=== PATIENT | male | born 1955 | race Caucasian/White ===

== ENCOUNTER 2017-08-27 21:54 | Outpatient (CLI) | payer BC ==
--- NOTE | 2017-08-28 00:46 | Ultrasound Preliminary Report ---
Exam: US DUPLEX EXT VEINS BILATERAL IMPRESSION: No evidence for deep venous thrombosis bilaterally. [facility] SITE ID: [id number]
--- NOTE | 2017-08-28 00:49 | Ultrasound Report ---
EXAM: BILATERAL LOWER EXTREMITY VENOUS ULTRASOUND EXAM DATE: 08/28/2017 12:18 AM. CLINICAL HISTORY: PERIPHERAL VASCULAR DISEASE, CALF PAIN. COMPARISON: None. TECHNIQUE: Real-time sonographic vascular imaging was performed by the aitchbone breaker through the lower extremities utilizing both color-flow and Doppler spectral analysis. Multiple pharmacy services representative static i mages were saved for review. FINDINGS: Right: Common Femoral Vein (CFV): Normal. CFV-GSV Junction: Normal. Profunda Femoral Vein (PFV): Normal. Femoral Vein (FV) Prox: Normal. Femoral Vein (FV) Mid: Normal. Femoral Vein (FV) Dist: Normal. Popliteal Vein: Normal. Posterior Tibial Veins: Normal. Peroneal Veins: Normal. Left: Common Femoral Vein (CFV): Normal. CFV-GSV Junction: Normal. Profunda Femoral Vein (PFV): Normal. Femoral Vein (FV) Prox: Normal. Femoral Vein (FV) Mid: Normal. Femoral Vein (FV) Dist: Normal. Popliteal Vein: Normal. Posterior Tibial Veins: Normal. Peroneal Veins: Normal. Other: None. IMPRESSION: No evidence for deep venous thrombosis bilaterally. [facility] Referring Provider Line: [phone] SITE ID: [id number]
--- NOTE | 2017-08-28 01:59 | Ultrasound Preliminary Report ---
Exam: US DUPLEX LWR EXT ARTERIAL BILAT IMPRESSION: 1. There is occlusion of the right superficial femoral artery including stented segment. Reconstitute d flow seen at the level of the popliteal through dorsal pedal arteries. 2. Diffuse left lower extremity arterial sclerotic disease without evidence of occlusion. [facility] SITE ID: [id number]
--- NOTE | 2017-08-28 17:07 | Ultrasound Report ---
EXAM: BILATERAL LOWER EXTREMITY ARTERIAL DOPPLER ULTRASOUND EXAM DATE: 08/28/2017 12:18 AM. CLINICAL HISTORY: Peripheral vascular disease, calf pain. COMPARISON: None. TECHNIQUE: Real-time sonographic vascular imaging was performed by the business center manager, utilizing color-f low, Doppler flow, and spectral analysis. Multiple entry level account representative static images were saved for review . FINDINGS: A right superficial femoral artery stent is noted. No flow is seen throughout the right superficial f emoral artery including stented segments. Flow is seen within the right profunda as well as popliteal arteries. Monophasic waveforms seen throughout the calf arteries. The left lower extremity demonstra sonja diffuse atherosclerotic changes with predominantly monophasic waveforms however no evidence of oc clusion or high-grade stenosis. Right Leg: CUSTOMER SERVICER: PSV 105 cm/sec. Bi/triphasic waveform. PFA: PSV 278 cm/sec. Biphasic waveform. POP: PSV 109 cm/sec. Monophasic waveform. CHRISTELLE: PSV 16.8 cm/sec. Monophasic waveform. TANK OPERATOR: PSV 35 cm/sec. Monophasic waveform. PER: PSV 18 cm/sec. Monophasic waveform. DPA: PSV 14.6 cm/sec. Monophasic waveform. Left Leg: CUSTOMER SERVICER: PSV 115 cm/sec. Triphasic waveform. PSFA: PSV 68 cm/sec. Monophasic waveform. MSFA: PSV 43 cm/sec. Monophasic waveform. DSFA: PSV 34 cm/sec. Monophasic waveform. PFA: PSV 230 cm/sec. Biphasic waveform. POP: PSV 11 cm/sec. Monophasic waveform. CHRISTELLE: PSV 19 cm/sec. Monophasic waveform. TANK OPERATOR: PSV 9.1 cm/sec. Monophasic waveform. PER: PSV 10 cm/sec. Monophasic waveform. DPA: PSV 8 cm/sec. Monophasic waveform. IMPRESSION: 1. There is occlusion of the right superficial femoral artery including stented segment. Reconstitute d flow seen at the level of the popliteal through dorsal pedal arteries. 2. Diffuse left lower extremity arterial sclerotic disease without evidence of occlusion. [facility] Referring Provider Line: [phone] SITE ID: [id number]
== END 2017-08-27 21:55 | disposition home or self-care (01) ==
LOC: DI 21:54
PROVIDERS: ATTEND Physician Assistant Medical
DX: I77.1 Stricture of artery (principal)
CPT/HCPCS: 93925; 93970

== ENCOUNTER 2021-03-03 09:53 | Outpatient (CLI) | payer MEDICARE, BC ==
--- NOTE | 2021-03-03 12:51 | XRAY Report ---
PROCEDURE: Knee 3 View RT INDICATIONS: OSTEOARTHRITIS KNEE, RIGHT TECHNIQUE: 3 views of the right knee(s) were acquired. COMPARISON: None. FINDINGS: Bones: No fractures or dislocations. Mild to moderate tricomponent osteoarthritis is seen more promi nent in medial femoral tibial compartment. Enthesophyte formation in anterior tibial tuberosity at di stal patellar tendon insertion is seen . No suspicious bony lesions. Soft tissues: No joint effusion. No suspicious soft tissue calcifications. IMPRESSION: Mild to moderate tricompartment osteoarthritis most prominent in medial femoral tibial c ompartment. No fracture or dislocation. No significant joint effusion. Reviewed by: Basim Cowan MD on 03/03/2021 12:49 PM PDT Approved by: Basim Cowan MD on 03/03/2021 12:49 PM PDT Station ID: [id number]
== END 2021-03-03 23:59 | disposition home or self-care (01) ==
LOC: DI.N 09:53
PROVIDERS: ATTEND Family Medicine
DX: M17.11 Unilateral primary osteoarthritis, right knee (principal)

== ENCOUNTER 2021-04-27 08:00 | Outpatient (CLI) | payer MEDICARE, BC ==
[2021-04-27 12:20] LABS: CALCIUM 9.1 mg/dL (8.5-10.3); CREATININE 1.6 mg/dL (0.6-1.2); POTASSIUM 4.1 mmol/L (3.5-5.0)
[2021-04-27 12:56] LABS: ESTIMATED AVERAGE GLUCOSE 131 mg/dL (70-100); HEMOGLOBIN A1c% 6.2 % (4.27-6.07)
== END 2021-04-27 23:59 | disposition home or self-care (01) ==
LOC: LAB.WCP 08:00
PROVIDERS: ATTEND Internal Medicine
DX: R73.01 Impaired fasting glucose (principal); N40.1 Benign prostatic hyperplasia with lower urinary tract symptoms
CPT/HCPCS: 36415; 80048; 83036; 84153

== ENCOUNTER 2022-10-31 14:49 | Outpatient (CLI) | payer MEDICARE, BC ==
--- NOTE | 2022-10-31 16:59 | CT Report ---
PROCEDURE: CERVICAL SPINE WO INDICATIONS: CERVICALGIA TECHNIQUE: Noncontrast 3 mm thick sections acquired from the skull base to the T4 level. Sagittal and coronal r eformats were then constructed. For radiation dose reduction, the following was used: automated exp osure control, adjustment of mA and/or kV according to patient size. COMPARISON: None. FINDINGS: Image quality: Excellent. Bones: No fractures or dislocations. Visualized superior ribs are intact. Prominent multilevel rig ht facet hypertrophy from C2-C3 through C6-C7, and left facet hypertrophy involving C2-C3 and C3-C4. Multilevel uncovertebral joint hypertrophy. There is a degree of canal stenosis at C5-C6 and C6-C7. T here is multilevel bony foraminal narrowing. Soft tissues: Prevertebral soft tissues are normal in thickness. No paravertebral hematomas. No ap ical pneumothoraces. IMPRESSION: Cervical spondylosis with canal stenosis, multilevel facet arthropathy, and multilevel bony foraminal narrowing. Comment: Cervical spine MRI may be helpful. Reviewed by: Santos Sarkar MD on 10/31/2022 4:58 PM PST Approved by: Santos Sarkar MD on 10/31/2022 4:58 PM PST Station ID: [id number]
== END 2022-10-31 14:50 | disposition home or self-care (01) ==
LOC: DI 14:49
PROVIDERS: ATTEND Internal Medicine
DX: I08.0 Rheumatic disorders of both mitral and aortic valves (principal); M47.812 Spondylosis without myelopathy or radiculopathy, cervical region; M48.02 Spinal stenosis, cervical region
CPT/HCPCS: 93306

== ENCOUNTER 2022-11-18 07:41 | Outpatient (CLI) | payer MEDICARE, BC ==
--- NOTE | 2022-11-20 08:50 | MRI Report ---
PROCEDURE: CERVICAL SPINE WO INDICATIONS: OSSEOUS STENOSIS OF NEURAL CANAL TECHNIQUE: Noncontrast sagittal T1 spin echo and T2 fast spin echo, sagittal STIR, foraminal oblique sagittal T2 fast spin echo, and axial gradient echo or T2 fast spin echo through the cervical spine. COMPARISON: None. FINDINGS: Image quality: Excellent. Alignment and Curvature: Trace anterolisthesis of C4 on C5. Trace retrolisthesis of C5 on C6 and of C 6 on C7. Bone Marrow: Marrow demonstrates normal overall signal. Spinal Cord: Visualized spinal cord has normal size and signal. No cerebellar tonsillar herniation. Paraspinous Soft Tissues: No paravertebral masses. Prevertebral soft tissues are normal in thicknes s. C2-C3: Disc bulge. Central canal measures 10.7 mm. Bilateral facet hypertrophy. Bilateral uncoverteb ral joint hypertrophy. Moderate to severe right foraminal narrowing and moderate left foraminal narro wing. There is a degree of bilateral C3 nerve root impingement, right greater than left. C3-C4: Disc bulge. AP diameter of the canal is 9.8 mm. Bilateral uncovertebral joint hypertrophy an d bilateral facet hypertrophy. Moderate to severe right foraminal narrowing with the degree of right foraminal C4 nerve root impingement. Mild left foraminal narrowing. C4-C5: Disc bulge abutting the cord. AP diameter of the canal is 10.8 mm. Prominent right facet hype rtrophy. Mild left facet hypertrophy. Moderate right foraminal narrowing with flattening of the exiti ng right C5 nerve root. C5-C6: Diffuse posterior disc. Osteophyte with large bilateral uncovertebral joint osteophytes. The cord is abutted anteriorly. The central canal measures 9.4 mm. There is bilateral lateral recess sten osis, left greater than right, with bilateral C6 nerve root impingement in the lateral recesses, left greater than right. There is moderate right foraminal narrowing. There is moderate to severe left fo raminal narrowing. There is left foraminal C6 nerve root impingement. C6-C7: There is diffuse posterior disc plus osteophyte. Central canal measures 8.2 mm. There are lar ge bilateral uncovertebral joint osteophytes. There is moderate to severe right foraminal narrowing w ith the degree of right foraminal C7 nerve root impingement. There is mild left foraminal narrowing. C7-T1: No canal stenosis or foraminal stenosis. IMPRESSION: 1. Multilevel cervical spondylitic changes with multilevel facet arthropathy and multilevel uncoverte bral joint hypertrophy. 2. Multilevel canal stenosis, moderate at C6-C7, mild to moderate at C5-C6, and borderline at C3-C4. 3. Significant multilevel foraminal narrowing as described above. Findings include moderate to severe right foraminal narrowing at C2-C3 and C3-C4, moderate to severe left foraminal narrowing at C5-C6, and moderate to severe right foraminal narrowing at C6-C7. Reviewed by: Santos Sarkar MD on 11/20/2022 8:48 AM PDT Approved by: Santos Sarkar MD on 11/20/2022 8:48 AM PDT Station ID: [id number]
== END 2022-11-18 07:42 | disposition home or self-care (01) ==
LOC: DI 07:41
PROVIDERS: ATTEND Internal Medicine
DX: M47.812 Spondylosis without myelopathy or radiculopathy, cervical region (principal); M50.31 Other cervical disc degeneration, high cervical region; M48.02 Spinal stenosis, cervical region

== ENCOUNTER 2023-01-17 07:37 | Outpatient (CLI) | payer MEDICARE, BC ==
[2023-01-17 12:05] LABS: BASOPHILS % (AUTO) 0.4 %; EOSINOPHILS # (AUTO) 0.2 10^3/uL (0.0-0.7); EOSINOPHILS % (AUTO) 1.7 %; HCT - HEMATOCRIT 50.4 % (42.0-52.0); HGB - HEMOGLOBIN 15.8 g/dL (14.0-18.0); LYMPHOCYTES % (AUTO) 31.9 %; MEAN CORPUSCULAR HEMOGLOBIN 28.4 pg (27.0-31.0); MEAN CORPUSCULAR HGB CONC 31.3 g/dL (32.0-36.0); MEAN CORPUSCULAR VOLUME 90.6 fL (80.0-94.0); MEAN PLATELET VOLUME 11.9 fL (7.4-11.4); MONOCYTES # (AUTO) 0.5 10^3/uL (0.0-1.0); MONOCYTES % (AUTO) 5.8 %; NEUTROPHILS # (AUTO) 5.6 10^3/uL (1.5-6.6); NEUTROPHILS % (AUTO) 59.9 %; PLT - PLATELET COUNT 151 10^3/uL (130-450); RED BLOOD COUNT 5.56 10^6/uL (4.70-6.10); RED CELL DISTRIBUTION WIDTH 14.8 % (12.0-15.0); WHITE BLOOD COUNT 9.3 x10^3/uL (4.8-10.8)
[2023-01-17 12:12] LABS: ALBUMIN 4.2 g/dL (3.2-5.5); ALBUMIN/GLOBULIN RATIO 1.2 (1.0-2.2); ALKALINE PHOSPHATASE 86 IU/L (42-121); ALT ALANINE AMINOTRANSFERASE 21 IU/L (10-60); AST ASPARTATE AMINOTRANSFERASE 17 IU/L (10-42); BILIRUBIN,TOTAL 0.7 mg/dL (0.2-1.0); BUN - BLOOD UREA NITROGEN 37 mg/dL (6-20); CALCIUM 8.7 mg/dL (8.5-10.3); CARBON DIOXIDE - CO2 22 mmol/L (21-32); CHLORIDE 110 mmol/L (101-111); CHOL/HDL RATIO 4.7 (<5.0); CHOLESTEROL 168 mg/dL; CREATININE 1.9 mg/dL (0.6-1.2); GFR - MDRD 36 (>89); GLUCOSE 101 mg/dL (70-100); HDL CHOLESTEROL 36 mg/dL; LDL CHOLESTEROL,CALCULATED 93 mg/dL; LDL/HDL RATIO 2.6 (<3.6); POTASSIUM 4.9 mmol/L (3.5-5.0); SODIUM 137 mmol/L (135-145); TOTAL PROTEIN 7.6 g/dL (6.7-8.2); TRIGLYCERIDES 194 mg/dL; VLDL CHOLESTEROL 39 mg/dL
[2023-01-17 12:18] LABS: ESTIMATED AVERAGE GLUCOSE 123 mg/dL (70-100); HEMOGLOBIN A1c% 5.9 % (4.27-6.07)
== END 2023-01-17 07:38 | disposition home or self-care (01) ==
LOC: LAB.N 07:37
PROVIDERS: ATTEND Internal Medicine
DX: E78.5 Hyperlipidemia, unspecified (principal); R73.01 Impaired fasting glucose; I10 Essential (primary) hypertension
CPT/HCPCS: 36415; 80053; 80061; 83036; 83721; 85025

== ENCOUNTER 2023-08-14 08:00 | Outpatient (CLI) | payer MEDICARE, BC ==
[2023-08-14 12:03] LABS: BASOPHILS % (AUTO) 0.5 %; EOSINOPHILS # (AUTO) 0.2 10^3/uL (0.0-0.7); EOSINOPHILS % (AUTO) 1.8 %; HCT - HEMATOCRIT 46.5 % (42.0-52.0); HGB - HEMOGLOBIN 14.7 g/dL (14.0-18.0); LYMPHOCYTES # (AUTO) 2.3 10^3/uL (1.5-3.5); LYMPHOCYTES % (AUTO) 25.9 %; MEAN CORPUSCULAR HGB CONC 31.6 g/dL (32.0-36.0); MEAN CORPUSCULAR VOLUME 91.7 fL (80.0-94.0); MEAN PLATELET VOLUME 11.9 fL (7.4-11.4); MONOCYTES # (AUTO) 0.6 10^3/uL (0.0-1.0); MONOCYTES % (AUTO) 6.3 %; NEUTROPHILS # (AUTO) 5.7 10^3/uL (1.5-6.6); NEUTROPHILS % (AUTO) 64.9 %; PLT - PLATELET COUNT 168 10^3/uL (130-450); RED BLOOD COUNT 5.07 10^6/uL (4.70-6.10); RED CELL DISTRIBUTION WIDTH 13.9 % (12.0-15.0); WHITE BLOOD COUNT 8.7 x10^3/uL (4.8-10.8)
[2023-08-14 12:25] LABS: ESTIMATED AVERAGE GLUCOSE 120 mg/dL (70-100); HEMOGLOBIN A1c% 5.8 % (4.27-6.07)
[2023-08-14 12:49] LABS: ALBUMIN 4.5 g/dL (3.2-5.5); ALKALINE PHOSPHATASE 103 IU/L (42-121); ALT ALANINE AMINOTRANSFERASE 15 IU/L (10-60); AST ASPARTATE AMINOTRANSFERASE 13 IU/L (10-42); BILIRUBIN,TOTAL 0.6 mg/dL (0.2-1.0); BUN - BLOOD UREA NITROGEN 35 mg/dL (6-20); CALCIUM 9.2 mg/dL (8.5-10.3); CARBON DIOXIDE - CO2 23 mmol/L (21-32); CHLORIDE 107 mmol/L (101-111); CHOL/HDL RATIO 4.3 (<5.0); CHOLESTEROL 142 mg/dL; CREATININE 1.9 mg/dL (0.6-1.3); GFR - MDRD 36 (>89); GLUCOSE 101 mg/dL (74-104); HDL CHOLESTEROL 33 mg/dL; LDL CHOLESTEROL,CALCULATED 76 mg/dL; LDL/HDL RATIO 2.3 (<3.6); POTASSIUM 5.2 mmol/L (3.5-4.5); SODIUM 136 mmol/L (135-145); TOTAL PROTEIN 6.8 g/dL (6.4-8.9); TRIGLYCERIDES 164 mg/dL (48-352); VLDL CHOLESTEROL 33 mg/dL
[2023-08-14 14:06] LABS: THYROID STIMULATING HORMONE 2.05 uIU/mL (0.34-5.60)
== END 2023-08-14 08:01 | disposition home or self-care (01) ==
LOC: LAB.N 08:00
PROVIDERS: ATTEND Internal Medicine
DX: E78.5 Hyperlipidemia, unspecified (principal); R73.01 Impaired fasting glucose; R40.0 Somnolence; I10 Essential (primary) hypertension
CPT/HCPCS: 36415; 80053; 80061; 83036; 83721; 84443; 85025

== ENCOUNTER 2024-03-04 07:24 | Outpatient (CLI) | payer MEDICARE, BC ==
[2024-03-04 12:22] LABS: BASOPHILS % (AUTO) 0.3 %; EOSINOPHILS # (AUTO) 0.2 10^3/uL (0.0-0.7); EOSINOPHILS % (AUTO) 1.8 %; HCT - HEMATOCRIT 47.9 % (42.0-52.0); HGB - HEMOGLOBIN 15.1 g/dL (14.0-18.0); LYMPHOCYTES # (AUTO) 2.1 10^3/uL (1.5-3.5); LYMPHOCYTES % (AUTO) 21.7 %; MEAN CORPUSCULAR HEMOGLOBIN 28.5 pg (27.0-31.0); MEAN CORPUSCULAR HGB CONC 31.5 g/dL (32.0-36.0); MEAN CORPUSCULAR VOLUME 90.4 fL (80.0-94.0); MEAN PLATELET VOLUME 12.3 fL (7.4-11.4); MONOCYTES # (AUTO) 0.6 10^3/uL (0.0-1.0); MONOCYTES % (AUTO) 5.6 %; NEUTROPHILS # (AUTO) 6.9 10^3/uL (1.5-6.6); NEUTROPHILS % (AUTO) 70.4 %; PLT - PLATELET COUNT 167 10^3/uL (130-450); RED CELL DISTRIBUTION WIDTH 14.5 % (12.0-15.0); WHITE BLOOD COUNT 9.9 x10^3/uL (4.8-10.8)
[2024-03-04 12:39] LABS: ESTIMATED AVERAGE GLUCOSE 120 mg/dL (70-100); HEMOGLOBIN A1c% 5.8 % (4.27-6.07)
[2024-03-04 12:47] LABS: ALBUMIN 4.4 g/dL (3.2-5.5); ALBUMIN/GLOBULIN RATIO 1.4 (1.0-2.2); ALKALINE PHOSPHATASE 105 IU/L (42-121); ALT ALANINE AMINOTRANSFERASE 16 IU/L (10-60); AST ASPARTATE AMINOTRANSFERASE 13 IU/L (10-42); BILIRUBIN,TOTAL 0.8 mg/dL (0.2-1.0); BUN - BLOOD UREA NITROGEN 38 mg/dL (6-20); CALCIUM 9.8 mg/dL (8.5-10.3); CARBON DIOXIDE - CO2 22 mmol/L (21-32); CHLORIDE 107 mmol/L (101-111); CHOL/HDL RATIO 3.7 (<5.0); CHOLESTEROL 142 mg/dL; GFR - MDRD 33 (>89); GLUCOSE 100 mg/dL (74-104); HDL CHOLESTEROL 38 mg/dL; LDL CHOLESTEROL,CALCULATED 75 mg/dL; POTASSIUM 4.9 mmol/L (3.5-4.5); SODIUM 136 mmol/L (135-145); TOTAL PROTEIN 7.6 g/dL (6.4-8.9); TRIGLYCERIDES 143 mg/dL (48-352); VLDL CHOLESTEROL 29 mg/dL
== END 2024-03-04 07:25 | disposition home or self-care (01) ==
LOC: LAB.N 07:24
PROVIDERS: ATTEND Internal Medicine
DX: E78.5 Hyperlipidemia, unspecified (principal); R73.01 Impaired fasting glucose; Z12.5 Encounter for screening for malignant neoplasm of prostate; I10 Essential (primary) hypertension
CPT/HCPCS: 36415; 80053; 80061; 83036; 85025; G0103; 83721; 84153

== ENCOUNTER 2024-05-22 08:54 | Outpatient (CLI) | payer MEDICARE, BC | END 2024-05-22 08:55 | disposition home or self-care (01) | LOC: DI 08:54 | PROVIDERS: ATTEND Internal Medicine | DX: I08.0 Rheumatic disorders of both mitral and aortic valves (principal) | CPT/HCPCS: 93307 ==